=== PATIENT | female | born 1990 | race American Indian/Alaskan Native ===

== ENCOUNTER 2016-07-20 10:52 | Emergency (ER) | payer SELFPAY ==
[2016-07-20 12:15] LABS: Mean Corpuscular HGB Conc 30 % (30-34); Platelet Count 503 K/mm3 (140-440); Red Blood Count 5.12 M/mm3 (3.65-5.03); White Blood Count 8.9 K/mm3 (4.5-11.0)
[2016-07-20 12:16] LABS: Anion Gap 22 mmol/L; BUN/Creatinine Ratio 18.75; Blood Urea Nitrogen 15 mg/dL (7-17); Calcium 9.9 mg/dL (8.4-10.2); Carbon Dioxide 21 mmol/L (22-30); Chloride 97.9 mmol/L (98-107); Glucose 91 mg/dL (65-100); Potassium 3.5 mmol/L (3.6-5.0); Sodium 137 mmol/L (137-145)
[2016-07-20 12:17] LABS: Bacteria,Urine 1+ /HPF (Negative); Bilirubin,Urine NEG (Negative); Blood,Urine NEG (Negative); Ketones,Urine 80 mg/dL (Negative); Leukocyte Esterase,Urine LG (Negative); Mucus,Urine 3+ /HPF; Nitrite,Urine NEG (Negative); Urobilinogen,Urine < 2.0 mg/dL (<2.0)
[2016-07-20 12:23] LABS: Hematocrit 28.1 % (30.3-42.9); Hemoglobin 8.3 gm/dl (10.1-14.3); Mean Corpuscular Hemoglobin 16 pg (28-32); Mean Corpuscular Volume 55 fl (79-97)
[2016-07-20 13:18] LABS: Anisocytosis 1+; Blastocytes % (Manual) 0 %; Eosinophils % (Manual) 0 % (0.0-4.3)
[2016-07-20 13:19] LABS: Diff Status Complete; Elliptocytes Few; Hypochromasia 3+; Microcytosis 2+; Ovalocytes Few
[2016-07-20 20:23] VITALS: BP 132/77
--- NOTE | 2016-07-20 20:35 | Emergency Department Report ---
ED Abdominal Pain HPI - General Chief Complaint: Nausea/Vomiting/Diarrhea Stated Complaint: NAUSEA Time Seen by Provider: 07/20/16 20:11 Source: patient Mode of arrival: Ambulatory Limitations: No Limitations - History of Present Illness Initial Comments: Patient is a 26-year-old female with no past medical history presenting to the ER with 5 months of abdominal pain. Patient reports the pain is crampy, diffuse , associated with nausea at times. Currently patient denies any pain. Otherwise no fevers, chills, vomiting, chest pain, status of breath, trauma, travel, or sick contacts. MD Complaint: abdominal pain, other (Nausea) -: Gradual, month(s) Location: diffuse Radiation: none Migration to: no migration Quality: cramping Consistency: intermittent Improves With: nothing Worsens With: nothing Associated Symptoms: nausea - Related Data Previous Rx's Medication Instructions Recorded Last Taken Type Ondansetron [Zofran Odt] 4 mg PO Q8HR PRN #12 tab.rapdis 07/20/16 Unknown Rx Allergies Allergy/AdvReac Type Severity Reaction Status Date / Time No Known Allergies Allergy Unverified 07/20/16 11:33 ED Review of Systems ROS: Stated complaint: NAUSEA Other details as noted in HPI Comment: All other systems reviewed and negative ED Past Medical Hx - Past Medical History Previous Medical History?: No Additional medical history: nausea - Surgical History Past Surgical History?: Yes Additional Surgical History: Exp. lap - Social History Smoking Status: Current Every Day Smoker Substance Use Type: Alcohol, Marijuana - Medications Home Medications: Home Medications Medication Instructions Recorded Confirmed Last Taken Type Ondansetron [Zofran Odt] 4 mg PO Q8HR PRN #12 tab.rapdis 07/20/16 Unknown Rx ED Physical Exam - General Limitations: No Limitations General appearance: alert, in no apparent distress - Head Head exam: Present: atraumatic, normocephalic - Eye Eye exam: Present: normal appearance - ENT ENT exam: Present: mucous membranes moist - Neck Neck exam: Present: normal inspection - Respiratory Respiratory exam: Present: normal lung sounds bilaterally. Absent: respiratory distress - Cardiovascular Cardiovascular Exam: Present: regular rate, normal rhythm. Absent: systolic murmur, diastolic murmur, rubs, gallop - GI/Abdominal GI/Abdominal exam: Present: soft, normal bowel sounds. Absent: distended, tenderness, guarding, rebound, rigid, mass, pulsatile mass, hernia - Rectal Rectal exam: Present: deferred - Extremities Exam Extremities exam: Present: normal inspection - Back Exam Back exam: Present: normal inspection - Neurological Exam Neurological exam: Present: alert, oriented X3 - Psychiatric Psychiatric exam: Present: normal affect, normal mood - Skin Skin exam: Present: warm, dry, intact, normal color. Absent: rash ED Course Vital Signs 07/20/16 07/20/16 07/20/16 11:33 17:12 17:17 Temperature 98.9 F Pulse Rate 144 H 116 H Pulse Rate [ Left From Monitor] Respiratory 14 18 Rate Blood Pressure 128/61 Blood Pressure [Left Arm] Blood Pressure 119/70 [Right] O2 Sat by Pulse 100 100 100 Oximetry 07/20/16 07/20/16 07/20/16 17:21 17:30 17:31 Temperature 98.7 F Pulse Rate Pulse Rate [ Left From Monitor] Respiratory Rate Blood Pressure 119/70 119/70 Blood Pressure [Left Arm] Blood Pressure [Right] O2 Sat by Pulse 100 100 Oximetry 07/20/16 07/20/16 07/20/16 17:41 17:46 17:51 Temperature Pulse Rate Pulse Rate [ Left From Monitor] Respiratory 18 Rate Blood Pressure 119/70 119/70 Blood Pressure [Left Arm] Blood Pressure [Right] O2 Sat by Pulse 100 99 100 Oximetry 07/20/16 07/20/16 07/20/16 18:00 18:11 18:21 Temperature Pulse Rate Pulse Rate [ Left From Monitor] Respiratory Rate Blood Pressure 124/72 124/72 124/72 Blood Pressure [Left Arm] Blood Pressure [Right] O2 Sat by Pulse 100 100 100 Oximetry 07/20/16 07/20/16 18:31 20:21 Temperature 98.4 F Pulse Rate Pulse Rate [ 109 H Left From Monitor] Respiratory 18 Rate Blood Pressure 124/72 Blood Pressure 132/77 [Left Arm] Blood Pressure [Right] O2 Sat by Pulse 100 99 Oximetry ED Medical Decision Making - Lab Data Result diagrams: 07/20/16 11:49 07/20/16 11:49 - Medical Decision Making Results discussed with the patient at bedside, patient aware she is anemic. Instructed patient to follow-up with a mat inspector for continued abdominal pain, and to follow up with her primary care regarding her anemia, patient understood Critical care attestation.: If time is entered above; I have spent that time in minutes in the direct care of this critically ill patient, excluding procedure time. ED Disposition Clinical Impression: Abdominal pain, Nausea, Anemia Disposition: DISCHARGED TO HOME OR SELFCARE Is pt being admited?: No Condition: Stable Instructions: Abdominal Pain (ED), Anemia (ED) Prescriptions: Ondansetron [Zofran Odt] 4 mg PO Q8HR PRN #12 tab.rapdis PRN Reason: Nausea Referrals: PRIMARY CARE, [Primary Care Provider] - 3-5 Days
== END 2016-07-20 21:09 | disposition home or self-care (01) ==
LOC: ED 10:52
DX: R10.84 Generalized abdominal pain (principal); R11.0 Nausea; D64.9 Anemia, unspecified; F17.200 Nicotine dependence, unspecified, uncomplicated; F12.10 Cannabis abuse, uncomplicated
CPT/HCPCS: 36415; 80048; 81001; 81025; 82962; 85007; 85025; 99283

== ENCOUNTER 2016-09-21 16:38 | Emergency (ER) | payer SELFPAY ==
[2016-09-21 18:18] VITALS: BP 113/83
[2016-09-21 18:56] LABS: Bacteria,Urine 1+ /HPF (Negative); Bilirubin,Urine NEG (Negative); Blood,Urine NEG (Negative); Ketones,Urine NEG (Negative); Leukocyte Esterase,Urine MOD (Negative); Mucus,Urine 1+ /HPF; Nitrite,Urine NEG (Negative); Protein,Urine <15 mg/dL mg/dL (Negative); Urobilinogen,Urine < 2.0 mg/dL (<2.0)
[2016-09-21 20:19] LABS: Hematocrit 24.9 % (30.3-42.9); Hemoglobin 7.5 gm/dl (10.1-14.3); Mean Corpuscular HGB Conc 30 % (30-34); Platelet Count 541 K/mm3 (140-440); Red Blood Count 4.58 M/mm3 (3.65-5.03); White Blood Count 7.7 K/mm3 (4.5-11.0)
[2016-09-21 20:25] LABS: Mean Corpuscular Hemoglobin 16 pg (28-32); Mean Corpuscular Volume 54 fl (79-97); Red Cell Distribution Width 21.9 % (13.2-15.2)
[2016-09-21 20:39] LABS: Alanine Aminotransferase 7 units/L (7-56); Albumin 4.4 g/dL (3.9-5); Albumin/Globulin Ratio 1.4 %; Alkaline Phosphatase 44 units/L (35-129); Anion Gap 16 mmol/L; BUN/Creatinine Ratio 23.33; Blood Urea Nitrogen 14 mg/dL (7-17); Calcium 9.1 mg/dL (8.4-10.2); Carbon Dioxide 23 mmol/L (22-30); Chloride 104.7 mmol/L (98-107); Glucose 82 mg/dL (65-100); Lipase 42 units/L (13-60); Potassium 3.4 mmol/L (3.6-5.0); Sodium 140 mmol/L (137-145); Total Protein 7.5 g/dL (6.3-8.2)
[2016-09-21 21:15] LABS: Anisocytosis 1+; Basophils % (Manual) 0 % (0.0-1.8); Blastocytes % (Manual) 0 %; Elliptocytes Few; Eosinophils % (Manual) 0 % (0.0-4.3); Giant Platelets Rare; Hypochromasia 3+; Microcytosis 2+; Ovalocytes Few; Poikilocytosis 2+; Smudge Cells Few; Target Cells 1+
[2016-09-21 21:17] LABS: Diff Status Complete; Platelet Estimate Appears Increased; Rouleaux Few
== END 2016-09-22 03:16 | disposition left against medical advice (07) ==
LOC: ED 16:38
DX: M54.5 Low back pain (principal); Z53.21 Procedure and treatment not carried out due to patient leaving prior to being seen by health care provider
CPT/HCPCS: 36415; 80053; 81001; 83690; 84703; 85007; 85025

== ENCOUNTER 2016-09-23 11:02 | Inpatient (IN) | payer SELFPAY ==
[2016-09-23 13:23] LABS: Anion Gap 18 mmol/L; Blood Urea Nitrogen 14 mg/dL (7-17); Calcium 9.2 mg/dL (8.4-10.2); Carbon Dioxide 21 mmol/L (22-30); Chloride 102.7 mmol/L (98-107); Glucose 84 mg/dL (65-100); Potassium 3.7 mmol/L (3.6-5.0); Sodium 138 mmol/L (137-145)
[2016-09-23 13:38] LABS: Mean Corpuscular HGB Conc 29 % (30-34); Platelet Count 547 K/mm3 (140-440); Red Blood Count 4.48 M/mm3 (3.65-5.03)
[2016-09-23 13:50] LABS: Hematocrit 24.9 % (30.3-42.9); Hemoglobin 7.2 gm/dl (10.1-14.3); Mean Corpuscular Hemoglobin 16 pg (28-32); Mean Corpuscular Volume 56 fl (79-97); Red Cell Distribution Width 22.2 % (13.2-15.2)
[2016-09-23 14:38] LABS: Anisocytosis 1+; Blastocytes % (Manual) 0 %; Microcytosis 1+
[2016-09-23 14:39] LABS: Hypochromasia 2+; Target Cells Few
[2016-09-23 14:40] LABS: Diff Status Complete; Elliptocytes Few; Platelet Estimate Consistent w Auto
--- NOTE | 2016-09-23 16:21 | Emergency Department Report ---
Entered by BEATA CLAROS, acting as scribe for LISA SCOTT NP. ED Female HPI - General Chief complaint: Urogenital-Female Stated complaint: VAGINAL BURNING Time Seen by Provider: 09/23/16 13:39 Source: patient, RN notes reviewed, old records reviewed (labs from previous visit ) Mode of arrival: Ambulatory Limitations: No Limitations - History of Present Illness Initial comments: Pt is a 26 y.o. female who presents to [facility] for evaluation of two day hx of persistent dysuria with palpable lumps to her vagina, persistent tingling at her LLQ, and nausea. She denies urinary frequency or hematuria. Pt additionally notes experiencing a headache yesterday, at which time she took Advil. She denies black stool or blood in stool, reporting that her stool is yellow. Pt was seen here yesterday for the same complaint but left before she was seen and at [facility] for the same two days ago. She is homeless and is requesting a shower and clean clothes. PT states she thinks her vagina is irritated because the last [facility] she stayed at would not let her shower. Pt notes that she was drinking a significant amount of liquor and smoking marijuana recently. She states that she has been turned down by homeless shelters to which she has applied after being evicted from her apartment. PT states she was told that white rum would help kill infection. PT states she was drinking rum to cure her vaginal irritation MD Complaint: dysuria Onset/Timin -: days(s) Location: LLQ Severity: severe Severity scale (0 -10): 10 Quality: other (tingling) Consistency: constant Improves with: none Worsens with: none Are you Now?: No Associated Symptoms: abdominal pain, nausea/vomiting, headaches, dysuria, other (Palpable lumps to vagina). denies: vaginal discharge, vaginal bleeding, hematuria, syncope, weakness - Related Data Sexually active: Yes Previous Rx's Medication Instructions Recorded Last Taken Type Ferrous Gluconate [Fergon 325 MG 325 mg PO QDAY #30 tablet 09/24/16 Unknown Rx tab] Allergies Allergy/AdvReac Type Severity Reaction Status Date / Time No Known Allergies Allergy Verified 09/21/16 18:18 ED Review of Systems Comment: All other systems reviewed and negative Constitutional: denies: fever, malaise Respiratory: no symptoms reported Endocrine: no symptoms reported Gastrointestinal: as per HPI, abdominal pain, nausea, other (Negative for black stool or blood in stool. ) Genitourinary: dysuria. denies: frequency, hematuria, discharge Skin: as per HPI, other Neurological: headache, vertigo ED Past Medical Hx - Past Medical History Previous Medical History?: Yes Hx Psychiatric Treatment: Yes (DEPRESSION / PTSD) Additional medical history: ANEMIA ? - Surgical History Past Surgical History?: Yes Additional Surgical History: Exp. lap - Social History Smoking Status: Current Every Day Smoker Substance Use Type: Alcohol, Cocaine, Marijuana - Medications Home Medications: Home Medications Medication Instructions Recorded Confirmed Last Taken Type Ferrous Gluconate [Fergon 325 MG 325 mg PO QDAY #30 tablet 09/24/16 Unknown Rx tab] ED Physical Exam - General Limitations: No Limitations General appearance: alert, in no apparent distress - Head Head exam: Present: atraumatic, normocephalic, normal inspection - Eye Eye exam: Present: normal appearance, PERRL, EOMI. Absent: conjunctival injection - ENT ENT exam: Present: normal exam, mucous membranes moist - Neck Neck exam: Present: normal inspection, full ROM. Absent: tenderness, lymphadenopathy - Respiratory Respiratory exam: Present: normal lung sounds bilaterally. Absent: respiratory distress, chest wall tenderness - Cardiovascular Cardiovascular Exam: Present: regular rate, normal rhythm, normal heart sounds - GI/Abdominal GI/Abdominal exam: Present: soft, normal bowel sounds. Absent: tenderness, guarding, rebound - Rectal Rectal exam: Present: deferred (due to pt's refusal ) - External exam: Present: other (PT has copious amount of vaginal discharge on her external exam). Absent: erythema, swelling, lesions Speculum exam: Present: other (pt unable to tolerate. female quality associate at bedside. ) Bi-manual exam: Present: other (pt refused ) - Extremities Exam Extremities exam: Present: normal inspection, full ROM, normal capillary refill. Absent: tenderness - Back Exam Back exam: Present: normal inspection, full ROM. Absent: tenderness, CVA tenderness (R), CVA tenderness (L), muscle spasm, paraspinal tenderness, vertebral tenderness - Neurological Exam Neurological exam: Present: alert, oriented X3, normal gait - Psychiatric Psychiatric exam: Present: normal affect, normal mood - Skin Skin exam: Present: warm, dry, intact, normal color ED Course Vital Signs 09/23/16 09/23/16 09/23/16 11:06 20:39 21:12 Temperature 97.8 F 98.7 F Pulse Rate 83 89 Respiratory 20 20 20 Rate Blood Pressure 113/73 Blood Pressure 112/69 [Right] O2 Sat by Pulse 100 98 100 Oximetry 09/23/16 09/23/16 09/23/16 22:07 22:22 22:52 Temperature 98.6 F 98.6 F 98.6 F Pulse Rate 88 88 75 Respiratory 20 20 20 Rate Blood Pressure 112/68 114/52 114/59 Blood Pressure [Right] O2 Sat by Pulse 100 Oximetry 09/23/16 09/24/16 23:09 01:00 Temperature 98.6 F 98.6 F Pulse Rate 80 80 Respiratory 20 20 Rate Blood Pressure 110/61 Blood Pressure 110/75 [Right] O2 Sat by Pulse 100 99 Oximetry - Reevaluation(s) Reevaluation #1: 09/23/16 16:18 PT was unable to tolerate pelvic exam. PT aware if exam not done, that we may not be able to dx and treat the source of her pain. external vaginal discharge swabbed and sent to lab Reevaluation #2: 09/23/16 16:55 PT aware of wet prep results. 09/23/16 17:30 PT refused Flagyl and Zithromax. PT states she had those medications a year ago and they made her throw up. PT took the Phenergan that was ordered. PT aware phenergan ordered to prevent any n/v. PT still refusing treatment. Reevaluation #3: 09/23/16 19:43 pt agrees to admission for anemia. PT aware of plan of care. - Pulse Oximetry Interpretation Digit-Finger Initial Pulse Oximetry Readin Actions Taken: none ED Medical Decision Making - Lab Data Result diagrams: 09/24/16 15:25 09/23/16 12:55 Laboratory Last Values WBC 7.0 K/mm3 (4.5-11.0) 09/23/16 12:55 RBC 4.48 M/mm3 (3.65-5.03) 09/23/16 12:55 Hgb 7.2 gm/dl (10.1-14.3) L 09/23/16 12:55 Hct 24.9 % (30.3-42.9) L 09/23/16 12:55 MCV 56 fl (79-97) L 09/23/16 12:55 MCH 16 pg (28-32) L 09/23/16 12:55 MCHC 29 % (30-34) L 09/23/16 12:55 RDW 22.2 % (13.2-15.2) H 09/23/16 12:55 Plt Count 547 K/mm3 (140-440) H 09/23/16 12:55 Add Manual Diff Complete 09/23/16 12:55 Total Counted 100 09/23/16 12:55 Seg Neuts % (Manual) 56.0 % (40.0-70.0) 09/23/16 12:55 Band Neutrophils % 0 % 09/23/16 12:55 Lymphocytes % (Manual) 37.0 % (13.4-35.0) H 09/23/16 12:55 Reactive Lymphs % (Man) 0 % 09/23/16 12:55 Monocytes % (Manual) 3.0 % (0.0-7.3) 09/23/16 12:55 Eosinophils % (Manual) 3.0 % (0.0-4.3) 09/23/16 12:55 Basophils % (Manual) 1.0 % (0.0-1.8) 09/23/16 12:55 Metamyelocytes % 0 % 09/23/16 12:55 Myelocytes % 0 % 09/23/16 12:55 Promyelocytes % 0 % 09/23/16 12:55 Blast Cells % 0 % 09/23/16 12:55 Nucleated RBC % Not Reportable 09/23/16 12:55 Seg Neutrophils # Man 3.9 K/mm3 (1.8-7.7) 09/23/16 12:55 Band Neutrophils # 0.0 K/mm3 09/23/16 12:55 Lymphocytes # (Manual) 2.6 K/mm3 (1.2-5.4) 09/23/16 12:55 Abs React Lymphs (Man) 0.0 K/mm3 09/23/16 12:55 Monocytes # (Manual) 0.2 K/mm3 (0.0-0.8) 09/23/16 12:55 Eosinophils # (Manual) 0.2 K/mm3 (0.0-0.4) 09/23/16 12:55 Basophils # (Manual) 0.1 K/mm3 (0.0-0.1) 09/23/16 12:55 Metamyelocytes # 0.0 K/mm3 09/23/16 12:55 Myelocytes # 0.0 K/mm3 09/23/16 12:55 Promyelocytes # 0.0 K/mm3 09/23/16 12:55 Blast Cells # 0.0 K/mm3 09/23/16 12:55 WBC Morphology Not Reportable 09/23/16 12:55 Hypersegmented Neuts Not Reportable 09/23/16 12:55 Hyposegmented Neuts Not Reportable 09/23/16 12:55 Hypogranular Neuts Not Reportable 09/23/16 12:55 Smudge Cells Not Reportable 09/23/16 12:55 Toxic Granulation Not Reportable 09/23/16 12:55 Toxic Vacuolation Not Reportable 09/23/16 12:55 Dohle Bodies Not Reportable 09/23/16 12:55 Pelger-Huet Anomaly Not Reportable 09/23/16 12:55 Karena Rods Not Reportable 09/23/16 12:55 Platelet Estimate Consistent w auto 09/23/16 12:55 Clumped Platelets Not Reportable 09/23/16 12:55 Plt Clumps, EDTA Not Reportable 09/23/16 12:55 Large Platelets Not Reportable 09/23/16 12:55 Giant Platelets Not Reportable 09/23/16 12:55 Platelet Satelliting Not Reportable 09/23/16 12:55 Plt Morphology Comment Not Reportable 09/23/16 12:55 RBC Morphology Not Reportable 09/23/16 12:55 Dimorphic RBCs Not Reportable 09/23/16 12:55 Polychromasia Not Reportable 09/23/16 12:55 Hypochromasia 2+ 09/23/16 12:55 Poikilocytosis Not Reportable 09/23/16 12:55 Anisocytosis 1+ 09/23/16 12:55 Microcytosis 1+ 09/23/16 12:55 Macrocytosis Not Reportable 09/23/16 12:55 Spherocytes Not Reportable 09/23/16 12:55 Pappenheimer Bodies Not Reportable 09/23/16 12:55 Sickle Cells Not Reportable 09/23/16 12:55 Target Cells Few 09/23/16 12:55 Tear Drop Cells Not Reportable 09/23/16 12:55 Ovalocytes Not Reportable 09/23/16 12:55 Helmet Cells Not Reportable 09/23/16 12:55 Yous[place] Bodies Not Reportable 09/23/16 12:55 [place] Rings Not Reportable 09/23/16 12:55 [place] Cells Not Reportable 09/23/16 12:55 Bite Cells Not Reportable 09/23/16 12:55 Crenated Cell Not Reportable 09/23/16 12:55 Elliptocytes Few 09/23/16 12:55 Acanthocytes (Spur) Not Reportable 09/23/16 12:55 Rouleaux Not Reportable 09/23/16 12:55 Hemoglobin C Crystals Not Reportable 09/23/16 12:55 Schistocytes Not Reportable 09/23/16 12:55 Malaria parasites Not Reportable 09/23/16 12:55 Erick Bodies Not Reportable 09/23/16 12:55 Hem Pathologist Commnt No 09/23/16 12:55 Sodium 138 mmol/L (137-145) 09/23/16 12:55 Potassium 3.7 mmol/L (3.6-5.0) 09/23/16 12:55 Chloride 102.7 mmol/L (98-107) 09/23/16 12:55 Carbon Dioxide 21 mmol/L (22-30) L 09/23/16 12:55 Anion Gap 18 mmol/L 09/23/16 12:55 BUN 14 mg/dL (7-17) 09/23/16 12:55 Creatinine 0.7 mg/dL (0.7-1.2) 09/23/16 12:55 Estimated GFR > 60 ml/min 09/23/16 12:55 BUN/Creatinine Ratio 20.00 % 09/23/16 12:55 Glucose 84 mg/dL (65-100) 09/23/16 12:55 Calcium 9.2 mg/dL (8.4-10.2) 09/23/16 12:55 HCG, Qual Negative (Negative) 09/23/16 12:55 Urine Color Yellow (Yellow) 09/23/16 18:00 Urine Turbidity Clear (Clear) 09/23/16 18:00 Urine pH 6.0 (5.0-7.0) 09/23/16 18:00 Ur Specific [place] 1.011 (1.003-1.030) 09/23/16 18:00 Urine Protein <15 mg/dl mg/dL (Negative) 09/23/16 18:00 Urine Glucose (UA) Neg mg/dL (Negative) 09/23/16 18:00 Urine Ketones Neg mg/dL (Negative) 09/23/16 18:00 Urine Blood Neg (Negative) 09/23/16 18:00 Urine Nitrite Neg (Negative) 09/23/16 18:00 Urine Bilirubin Neg (Negative) 09/23/16 18:00 Urine Urobilinogen < 2.0 mg/dL (<2.0) 09/23/16 18:00 Ur Leukocyte Esterase Sm (Negative) 09/23/16 18:00 Urine WBC (Auto) 1.0 /HPF (0.0-6.0) 09/23/16 18:00 Urine RBC (Auto) < 1.0 /HPF (0.0-6.0) 09/23/16 18:00 U Epithel Cells (Auto) 1.0 /HPF (0-13.0) 09/23/16 18:00 Urine Mucus Few /HPF 09/23/16 18:00 - Radiology Data Radiology results: pending (Pelvic US ) - Medical Decision Making PT is a sexual active 26 year old female who complains of vaginal discomfort and dysuria. PT refused pelvic exam. Wet prep sent off of external vaginal discharge which was positive for trich. PT refused treatment while in ED. Plan to admit pt for her anemia after her pelvic US is resulted. - Differential Diagnosis vaginitis, std, cervicitis, anemia Critical Care Time: No ED Disposition Clinical Impression: Trichomonas infection, Pelvic pain Anemia Qualifiers: Anemia type: iron deficiency Iron deficiency anemia type: unspecified iron deficiency Qualified Code(s): D50.9 - Iron deficiency anemia, unspecified Disposition: OP ADMIT IP TO THIS HOSP Is pt being admited?: Yes Condition: Stable This documentation as recorded by the HYACINTH resendez KELLY,accurately reflects the service I personally performed and the decisions made by ,LISA SCOTT , ADIS.
[2016-09-23] MEDS ORDERED: XYLOCAINE 1% MPF 5 mL INFILTRATI ONE (16:54)
[2016-09-23] MEDS ORDERED: FLAGYL PO ONE (16:54)
[2016-09-23] MEDS ORDERED: ZITHROMAX PO ONE (16:54)
[2016-09-23] MEDS ORDERED: PHENERGAN PO ONE (16:54)
[2016-09-23] MEDS ORDERED: ROCEPHIN IM ONE (16:54)
[2016-09-23 18:34] LABS: Bilirubin,Urine NEG (Negative); Blood,Urine NEG (Negative); Ketones,Urine NEG (Negative); Leukocyte Esterase,Urine SM (Negative); Mucus,Urine FEW /HPF; Nitrite,Urine NEG (Negative); Protein,Urine <15 mg/dL mg/dL (Negative); RBC,Urine < 1.0 /HPF (0.0-6.0); Urobilinogen,Urine < 2.0 mg/dL (<2.0)
[2016-09-23] MEDS ORDERED: NACL 0.9% 500 ML 500 ML IV ONE ×2 (19:33→21:53)
[2016-09-23] MEDS ORDERED: NACL 0.9% 1000 ML 1,000 ML IV ONE (19:35)
--- NOTE | 2016-09-23 20:37 | Ultrasound Report ---
FINAL REPORT PROCEDURE: US PELVIC COMPLETE TECHNIQUE: Real-time transabdominal sonography in multiple planes of pelvis was performed with image documentation. This examination was performed without Doppler. Vascular abnormalities, including ovarian torsion, will not be detectable without Doppler evaluation. CPT 53616 HISTORY: Left pelvic pain, anemia COMPARISON: No prior studies are available for comparison. FINDINGS: UTERUS Size: 7 x 3 x 5 cm. Endometrial thickness: 4 mm. Orientation: Anteverted and retroflexed. Cervix: Normal. Fibroids/masses: None. Bilateral ovaries are not visualized Pelvic fluid: None. Other: None. IMPRESSION: Anteverted and retroflexed uterus. Ovaries are not well visualized. A transvaginal study may be recommended.
--- NOTE | 2016-09-23 22:07 | Emergency Department Report ---
Blank Doc - Documentation Documentation: Nurse practitioner Aurelio have signed out the patient to me and requested that I speak to the night hospitalist regarding admission for symptomatic anemia and blood transfusion. I discussed case with Dr. Stevens who said that she would evaluate the patient.
--- NOTE | 2016-09-23 23:38 | History and Physical Report ---
History of Present Illness Date of examination: 09/23/16 History of present illness: 26-year-old woman with a history of depression, PTSD, anemia comes emergency room with complaints of feeling dizzy and short of breath. She admits to heavy menstrual cycle. Patient states she had abdominal pain prior to presentation but that has been resolved Patient denies chest pain, palpitation, cough, abdominal pain, hematochezia, dysuria, frequency, focal weakness, dysarthria, fever chills, polydipsia polyuria, hot or cold intolerance, easy bruisability, or rash or bleeding from mucosal membrane, rhinorrhea, epistaxis, earache, tinnitus, blurry vision, eye discharge, anxiety, depression. Other review of systems negative PAST SURGICAL HISTORY: Exploratory laparoscopy SOCIAL HISTORY: Admits to tobacco, alcohol, drug use, refused to specify or quantify FAMILY HISTORY: Hypertension Medications and Allergies Allergies Allergy/AdvReac Type Severity Reaction Status Date / Time No Known Allergies Allergy Verified 09/21/16 18:18 Home Medications Medication Instructions Recorded Confirmed Last Taken Type Ferrous Gluconate [Fergon 325 MG 325 mg PO QDAY #30 tablet 09/24/16 Unknown Rx tab] Exam - Physical Exam Narrative exam: Gen. appearance: Patient lying in bed, no apparent distress HEENT: Normocephalic, atraumatic, pupils equally round and reactive to light, extraocular movement intact, and no sclericterus,. No JVD or thyromegaly or nodule,neck supple, no carotid bruit ,mucous membranes moist, no exudate or erythema Heart: S1, S2, regular rate and rhythm Lungs: Clear to auscultation bilaterally, breathing comfortable Abdomen: Positive bowel sounds, nontender, nondistended, no organomegaly Extremity: No edema, cyanosis, clubbing Skin: No rash, nodules, warm, dry Neuro: Oriented 3, cranial nerves II-12 intact, speech is fluent, motor and sensory intact - Constitutional Vitals: Temp Pulse Resp BP Pulse Ox 98.6 F 80 20 110/61 100 09/23/16 23:09 09/23/16 23:09 09/23/16 23:09 09/23/16 23:09 09/23/16 23:09 Results - Labs CBC & Chem 7: 09/24/16 15:25 09/23/16 12:55 Labs: Abnormal lab results 09/23/16 09/23/16 09/23/16 Range/Units 12:55 12:55 20:05 Hgb 7.2 L (10.1-14.3) gm/dl Hct 24.9 L (30.3-42.9) % MCV 56 L (79-97) fl MCH 16 L (28-32) pg MCHC 29 L (30-34) % RDW 22.2 H (13.2-15.2) % Plt Count 547 H (140-440) K/mm3 Lymphocytes % (Manual) 37.0 H (13.4-35.0) % Carbon Dioxide 21 L (22-30) mmol/L Crossmatch See Detail Assessment and Plan Symptomatic anemia Transfused 2 units of packed red blood cells pre medicate prior to transfusion Start SCD
[2016-09-24] MEDS ORDERED: MILK OF MAGNESIA PO PRN (00:42)
[2016-09-24] MEDS ORDERED: ZOFRAN IV PRN (00:42)
[2016-09-24] MEDS ORDERED: DULCOLAX PR PRN (00:42)
[2016-09-24] MEDS ORDERED: TYLENOL PO PRN (00:42)
[2016-09-24] MEDS ORDERED: NACL 0.9% 500 ML 500 ML IV ONE (00:43)
[2016-09-24] MEDS ORDERED: BENADRYL IV PRN (00:50)
--- NOTE | 2016-09-24 14:50 | Progress Note ---
Assessment and Plan Assessment and plan: ASSESSMENT/PLAN 1. Symptomatic anemia Due to heavy menstrual cycle Patient received 2 units PRBC Repeat CBC 2.Bacterial vaginosis/Trichomoniasis wet prep shows 20% clue cells and few thrichomonas Treated with IV empiric antibiotic of Flagyl empirically rx for presumed gonorrhea/chlamydia with azithromycin and rocephin 3. Homeless Patient requested long term placement 4. DVT prophylaxis Lovenox History Interval history: Patient was admitted for symptomatic anemia. Patient alert and oriented 4 overly talkative. Patient does not respond appropriately to questions. Patient had an eventful overnight verbalized feeling better. She denies chest pain or lightheadedness dizziness heart palpitations, abdominal pain. Patient is homeless and requested for long term placement. Hospitalist Physical - Constitutional Vitals: Temp Pulse Resp BP Pulse Ox 98.9 F 78 19 108/68 98 09/24/16 07:00 09/24/16 07:00 09/24/16 07:00 09/24/16 07:00 09/24/16 07:00 General appearance: Present: no acute distress - EENT Eyes: Present: PERRL, EOM intact ENT: hearing intact, clear oral mucosa - Neck Neck: Present: supple, normal ROM - Respiratory Respiratory effort: normal - Cardiovascular Heart rate: 78 Rhythm: regular Heart Sounds: Present: S1 & S2 - Extremities Extremities: no ischemia Extremity abnormal: edema Peripheral Pulses: within normal limits - Abdominal General gastrointestinal: soft, tender - Integumentary Integumentary: Present: clear, warm, dry - Psychiatric Psychiatric: other (overly talkative) - Neurologic Neurologic: CNII-XII intact - Allied Health Allied health notes reviewed: nursing Results - Labs CBC & Chem 7: 09/24/16 15:25 09/23/16 12:55 Labs: Laboratory Last Values WBC 7.0 K/mm3 (4.5-11.0) 09/23/16 12:55 RBC 4.48 M/mm3 (3.65-5.03) 09/23/16 12:55 Hgb 7.2 gm/dl (10.1-14.3) L 09/23/16 12:55 Hct 24.9 % (30.3-42.9) L 09/23/16 12:55 MCV 56 fl (79-97) L 09/23/16 12:55 MCH 16 pg (28-32) L 09/23/16 12:55 MCHC 29 % (30-34) L 09/23/16 12:55 RDW 22.2 % (13.2-15.2) H 09/23/16 12:55 Plt Count 547 K/mm3 (140-440) H 09/23/16 12:55 Add Manual Diff Complete 09/23/16 12:55 Total Counted 100 09/23/16 12:55 Seg Neuts % (Manual) 56.0 % (40.0-70.0) 09/23/16 12:55 Band Neutrophils % 0 % 09/23/16 12:55 Lymphocytes % (Manual) 37.0 % (13.4-35.0) H 09/23/16 12:55 Reactive Lymphs % (Man) 0 % 09/23/16 12:55 Monocytes % (Manual) 3.0 % (0.0-7.3) 09/23/16 12:55 Eosinophils % (Manual) 3.0 % (0.0-4.3) 09/23/16 12:55 Basophils % (Manual) 1.0 % (0.0-1.8) 09/23/16 12:55 Metamyelocytes % 0 % 09/23/16 12:55 Myelocytes % 0 % 09/23/16 12:55 Promyelocytes % 0 % 09/23/16 12:55 Blast Cells % 0 % 09/23/16 12:55 Nucleated RBC % Not Reportable 09/23/16 12:55 Seg Neutrophils # Man 3.9 K/mm3 (1.8-7.7) 09/23/16 12:55 Band Neutrophils # 0.0 K/mm3 09/23/16 12:55 Lymphocytes # (Manual) 2.6 K/mm3 (1.2-5.4) 09/23/16 12:55 Abs React Lymphs (Man) 0.0 K/mm3 09/23/16 12:55 Monocytes # (Manual) 0.2 K/mm3 (0.0-0.8) 09/23/16 12:55 Eosinophils # (Manual) 0.2 K/mm3 (0.0-0.4) 09/23/16 12:55 Basophils # (Manual) 0.1 K/mm3 (0.0-0.1) 09/23/16 12:55 Metamyelocytes # 0.0 K/mm3 09/23/16 12:55 Myelocytes # 0.0 K/mm3 09/23/16 12:55 Promyelocytes # 0.0 K/mm3 09/23/16 12:55 Blast Cells # 0.0 K/mm3 09/23/16 12:55 WBC Morphology Not Reportable 09/23/16 12:55 Hypersegmented Neuts Not Reportable 09/23/16 12:55 Hyposegmented Neuts Not Reportable 09/23/16 12:55 Hypogranular Neuts Not Reportable 09/23/16 12:55 Smudge Cells Not Reportable 09/23/16 12:55 Toxic Granulation Not Reportable 09/23/16 12:55 Toxic Vacuolation Not Reportable 09/23/16 12:55 Dohle Bodies Not Reportable 09/23/16 12:55 Pelger-Huet Anomaly Not Reportable 09/23/16 12:55 Karena Rods Not Reportable 09/23/16 12:55 Platelet Estimate Consistent w auto 09/23/16 12:55 Clumped Platelets Not Reportable 09/23/16 12:55 Plt Clumps, EDTA Not Reportable 09/23/16 12:55 Large Platelets Not Reportable 09/23/16 12:55 Giant Platelets Not Reportable 09/23/16 12:55 Platelet Satelliting Not Reportable 09/23/16 12:55 Plt Morphology Comment Not Reportable 09/23/16 12:55 RBC Morphology Not Reportable 09/23/16 12:55 Dimorphic RBCs Not Reportable 09/23/16 12:55 Polychromasia Not Reportable 09/23/16 12:55 Hypochromasia 2+ 09/23/16 12:55 Poikilocytosis Not Reportable 09/23/16 12:55 Anisocytosis 1+ 09/23/16 12:55 Microcytosis 1+ 09/23/16 12:55 Macrocytosis Not Reportable 09/23/16 12:55 Spherocytes Not Reportable 09/23/16 12:55 Pappenheimer Bodies Not Reportable 09/23/16 12:55 Sickle Cells Not Reportable 09/23/16 12:55 Target Cells Few 09/23/16 12:55 Tear Drop Cells Not Reportable 09/23/16 12:55 Ovalocytes Not Reportable 09/23/16 12:55 Helmet Cells Not Reportable 09/23/16 12:55 [place] Bodies Not Reportable 09/23/16 12:55 Gabriels Rings Not Reportable 09/23/16 12:55 Emile Cells Not Reportable 09/23/16 12:55 Bite Cells Not Reportable 09/23/16 12:55 Crenated Cell Not Reportable 09/23/16 12:55 Elliptocytes Few 09/23/16 12:55 Acanthocytes (Spur) Not Reportable 09/23/16 12:55 Rouleaux Not Reportable 09/23/16 12:55 Hemoglobin C Crystals Not Reportable 09/23/16 12:55 Schistocytes Not Reportable 09/23/16 12:55 Malaria parasites Not Reportable 09/23/16 12:55 Erick Bodies Not Reportable 09/23/16 12:55 Hem Pathologist Commnt No 09/23/16 12:55 Sodium 138 mmol/L (137-145) 09/23/16 12:55 Potassium 3.7 mmol/L (3.6-5.0) 09/23/16 12:55 Chloride 102.7 mmol/L (98-107) 09/23/16 12:55 Carbon Dioxide 21 mmol/L (22-30) L 09/23/16 12:55 Anion Gap 18 mmol/L 09/23/16 12:55 BUN 14 mg/dL (7-17) 09/23/16 12:55 Creatinine 0.7 mg/dL (0.7-1.2) 09/23/16 12:55 Estimated GFR > 60 ml/min 09/23/16 12:55 BUN/Creatinine Ratio 20.00 % 09/23/16 12:55 Glucose 84 mg/dL (65-100) 09/23/16 12:55 Calcium 9.2 mg/dL (8.4-10.2) 09/23/16 12:55 HCG, Qual Negative (Negative) 09/23/16 12:55 Urine Color Yellow (Yellow) 09/23/16 18:00 Urine Turbidity Clear (Clear) 09/23/16 18:00 Urine pH 6.0 (5.0-7.0) 09/23/16 18:00 Ur Specific [place] 1.011 (1.003-1.030) 09/23/16 18:00 Urine Protein <15 mg/dl mg/dL (Negative) 09/23/16 18:00 Urine Glucose (UA) Neg mg/dL (Negative) 09/23/16 18:00 Urine Ketones Neg mg/dL (Negative) 09/23/16 18:00 Urine Blood Neg (Negative) 09/23/16 18:00 Urine Nitrite Neg (Negative) 09/23/16 18:00 Urine Bilirubin Neg (Negative) 09/23/16 18:00 Urine Urobilinogen < 2.0 mg/dL (<2.0) 09/23/16 18:00 Ur Leukocyte Esterase Sm (Negative) 09/23/16 18:00 Urine WBC (Auto) 1.0 /HPF (0.0-6.0) 09/23/16 18:00 Urine RBC (Auto) < 1.0 /HPF (0.0-6.0) 09/23/16 18:00 U Epithel Cells (Auto) 1.0 /HPF (0-13.0) 09/23/16 18:00 Urine Mucus Few /HPF 09/23/16 18:00 Blood Type O POSITIVE 09/23/16 20:05 Antibody Screen TNR 09/23/16 20:05 CHELSEA Antibody Screen Negative 09/23/16 20:05 Crossmatch See Detail 09/23/16 20:05 - Imaging and Cardiology CT scan - pelvis: image reviewed (Anteverted and retroflexed uterus, ovaris are not well visualized and transvaginal study may be recommended.)
--- NOTE | 2016-09-24 15:21 | Discharge Summary ---
Providers - Providers Date of Admission: 09/23/16 23:36 Date of discharge: 09/24/16 Attending physician: RAMON NÚÑEZ MD Primary care physician: INCIDENT HANDLER Hospitalization Reason for admission: 35 Condition: Stable Hospital course: Patient is 26 years old -[place] female with past medical history of PTSD and anemia who presents to ED for 2 days dysuria, vaginal discharge, tingling to left lower quadrant and nausea. She admitted for symptomatic anemia due to heavy menstrual cycle; wet prep was positive for Vaginosis, Trichomoniasis, therefore she was empirically rx for presumed Gonorrhea and chlamydia due to unprotected sex with multiple partners . Patient H &H was low and received 2 units of PRBC and tolerated well. She has been treated with Empiric antibiotic therapy for bacterial vaginosis,Trichomoniasis, Gonorrhea and chlamydia. Patient completed the full course of the antibiotic. Patient advised to follow-up with OBGYN as outpatient for heavy menstrual cycle. She was placed in Homeless intermediate prior to dc Disposition: DC-30 STILL A PATIENT - Discharge Diagnoses (1) Anemia Status: Acute Qualifiers: Anemia type: iron deficiency Iron deficiency anemia type: unspecified iron deficiency Vitamin B12 deficiency anemia type: V Folate deficiency anemia type: F Bone marrow failure anemia type: B Hemolytic anemia type: H Other causes of anemia: O Chronic kidney disease stage: C Qualified Code(s): D50.9 - Iron deficiency anemia, unspecified (2) Trichomonas infection Status: Acute (3) Bacterial vaginosis Status: Acute (4) Acute blood loss anemia Status: Acute Core Measure Documentation - Palliative Care Palliative Care/ Comfort Measures: Not Applicable - VTE Discharge Requirements Deep Vein Thrombosis/Pulmonary Embolism Present on Admission: Yes Has pt received <5 days of overlap therapy or INR<2.0: No Exam - Constitutional Vitals: Temp Pulse Resp BP Pulse Ox 98.9 F 78 19 108/68 98 09/24/16 07:00 09/24/16 07:00 09/24/16 07:00 09/24/16 07:00 09/24/16 07:00 General appearance: Present: no acute distress - EENT Eyes: Present: EOM intact ENT: hearing intact, clear oral mucosa - Neck Neck: Present: supple, normal ROM - Respiratory Respiratory effort: normal Respiratory: bilateral: CTA - Cardiovascular Heart Sounds: Present: S1 & S2. Absent: rub, click - Extremities Extremities: pulses symmetrical, No edema Peripheral Pulses: within normal limits - Abdominal General gastrointestinal: Present: soft, non-tender Female genitourinary: Present: other ( palpable lumps to her vagina) - Integumentary Integumentary: Present: clear, warm, dry - Musculoskeletal Musculoskeletal: strength equal bilaterally - Psychiatric Psychiatric: appropriate mood/affect, other (talkative and strange) - Neurologic Neurologic: CNII-XII intact - Allied Health Allied health notes reviewed: nursing Plan Activity: no restrictions Weight Bearing Status: Weight Bear as Tolerated Diet: regular Follow up with: [facility] [Outside] - 3-5 Days PRIMARY CAREMD [Primary Care Provider] - 3-5 Days MARY CAMPBELL MD [Staff Physician] - 3-5 Days [facility] [Outside] - 3-5 Days [facility] [Outside] - 3-5 Days [facility] [Outside] - 3-5 Days Prescriptions: Ferrous Gluconate [Fergon 325 MG tab] 325 mg PO QDAY #30 tablet
[2016-09-24 15:58] LABS: Hematocrit 30.1 % (30.3-42.9); Hemoglobin 9.4 gm/dl (10.1-14.3); Mean Corpuscular HGB Conc 31 % (30-34); Platelet Count 476 K/mm3 (140-440); Red Blood Count 4.92 M/mm3 (3.65-5.03); White Blood Count 9.2 K/mm3 (4.5-11.0)
[2016-09-24 16:07] LABS: Mean Corpuscular Hemoglobin 19 pg (28-32); Mean Corpuscular Volume 61 fl (79-97)
[2016-09-25 01:17] VITALS: BP 125/68
[2016-09-25 16:37] LABS: Hematocrit 31.3 % (30.3-42.9); Hemoglobin 9.9 gm/dl (10.1-14.3); Mean Corpuscular HGB Conc 32 % (30-34); Platelet Count 509 K/mm3 (140-440); Red Blood Count 5.13 M/mm3 (3.65-5.03)
[2016-09-25 16:44] LABS: Anion Gap 17 mmol/L; BUN/Creatinine Ratio 14.28; Blood Urea Nitrogen 10 mg/dL (7-17); Calcium 9.1 mg/dL (8.4-10.2); Carbon Dioxide 24 mmol/L (22-30); Chloride 101.1 mmol/L (98-107); Glucose 77 mg/dL (65-100); Sodium 138 mmol/L (137-145)
[2016-09-25 17:01] LABS: Mean Corpuscular Hemoglobin 19 pg (28-32); Mean Corpuscular Volume 61 fl (79-97); Red Cell Distribution Width 31.1 % (13.2-15.2)
[2016-09-25 18:43] LABS: Basophils % (Manual) 0 % (0.0-1.8); Blastocytes % (Manual) 0 %
[2016-09-25 18:45] LABS: Anisocytosis 1+; Elliptocytes 1+; Hypochromasia 1+
[2016-09-25 18:46] LABS: Diff Status Complete; Platelet Estimate Consistent w Auto
== END 2016-09-25 16:25 | disposition home or self-care (01) | DRG 812 ==
LOC: ED 11:02 → 3A 23:36
PROVIDERS: ADMIT Internal Medicine; ATTEND Internal Medicine
PROC: 30233N1 Transfusion of Nonautologous Red Blood Cells into Peripheral Vein, Percutaneous Approach (ICD-10-PCS; principal; 2016-09-23)
DX: D62 Acute posthemorrhagic anemia (principal); A54.9 Gonococcal infection, unspecified; F32.9 Major depressive disorder, single episode, unspecified; F43.10 Post-traumatic stress disorder, unspecified; Z82.49 Family history of ischemic heart disease and other diseases of the circulatory system; Z59.0 Homelessness; Z93.4 Other artificial openings of gastrointestinal tract status; Z72.89 Other problems related to lifestyle; F14.90 Cocaine use, unspecified, uncomplicated; F12.90 Cannabis use, unspecified, uncomplicated; A59.9 Trichomoniasis, unspecified; F17.210 Nicotine dependence, cigarettes, uncomplicated; N76.0 Acute vaginitis; A74.9 Chlamydial infection, unspecified; N92.0 Excessive and frequent menstruation with regular cycle
CPT/HCPCS: 36415; 76856; 80048; 81001; 84703; 85007; 85025; 85027; 86850; 86900; 86901; 86920; 87210; 93005; 93010; J0696; J7030; J7040; P9016; Q0169

== ENCOUNTER 2016-12-31 19:04 | Emergency (ER) | payer OTHER ==
[2016-12-31 23:38] LABS: Basophils % (Auto) 0.6 % (0.0-1.8); Eosinophils % (Auto) 1.5 % (0.0-4.3); Hematocrit 31.7 % (30.3-42.9); Hemoglobin 9.7 gm/dl (10.1-14.3); Mean Corpuscular HGB Conc 31 % (30-34); Platelet Count 400 K/mm3 (140-440); Red Blood Count 4.84 M/mm3 (3.65-5.03); White Blood Count 8.9 K/mm3 (4.5-11.0)
[2017-01-01] LABS: Mean Corpuscular Hemoglobin 20 pg (28-32); Mean Corpuscular Volume 66 fl (79-97); Red Cell Distribution Width 21.5 % (13.2-15.2)
--- NOTE | 2017-01-01 05:24 | Emergency Department Report ---
ED Dizziness HPI - General Chief Complaint: Psych Stated Complaint: DIZZINESS Time Seen by Provider: 01/01/17 02:15 Source: patient Mode of arrival: Ambulatory Limitations: Altered Mental Status - History of Present Illness Initial Comments: 26-year-old female with past medical history of depression, PTSD, anemia requiring blood transfusion during admission in August presents to the hospital complaining of feeling lightheaded and dizzy and wanting a test. Patient's currently on the third day of her mental cycle. Patient is also homeless. Patient states she no longer feels dizzy and denies any complaints at this time. - Related Data Previous Rx's Medication Instructions Recorded Last Taken Type Ferrous Gluconate [Fergon 325 MG 325 mg PO QDAY #30 tablet 01/01/17 Unknown Rx tab] Allergies Allergy/AdvReac Type Severity Reaction Status Date / Time ibuprofen Allergy Unknown Verified 12/31/16 19:23 ED Review of Systems ROS: Stated complaint: DIZZINESS Other details as noted in HPI Comment: All other systems reviewed and negative Other: Constitutional: No fevers chills Eyes: No eye pain visual changes or discharge ENT: No ear pain or throat pain Neck: Denies pain Respiratory: Denies cough wheezing shortness of breath Cardiovascular: Denies chest pain, palpitations, syncope GI: Denies abdominal pain, nausea, vomiting, diarrhea : Denies dysuria Musculoskeletal: Denies back uziel Skin: Denies rash, lesions, erythema Neurologic: Denies headache, numbness, weakness Psychiatric: Denies suicidal ideation, hallucinations ED Past Medical Hx - Past Medical History Previous Medical History?: No Hx Psychiatric Treatment: Yes (DEPRESSION / PTSD) Additional medical history: ANEMIA ? - Surgical History Past Surgical History?: No Additional Surgical History: Exp. lap, ? head last year, she does not know why? - Social History Smoking Status: Current Every Day Smoker Substance Use Type: Marijuana - Medications Home Medications: Home Medications Medication Instructions Recorded Confirmed Last Taken Type Ferrous Gluconate [Fergon 325 MG 325 mg PO QDAY #30 tablet 01/01/17 Unknown Rx tab] ED Physical Exam - General Limitations: Altered Mental Status - Other Other exam information: General: No limitations, patient is alert in no acute distress Head exam: Atraumatic, normocephalic Eyes exam: Normal appearance, pupils equal reactive to light, extraocular movements intact ENT: Moist mucous membrane, normal oropharynx Neck exam: Normal inspection, full range of motion, no meningismus nontender Respiratory exam: Clear to auscultation bilateral, no wheezes, rales, crackles Cardiovascular: Normal rate and rhythm, normal heart sounds Abdomen: Soft, nondistended, and nontender, with normal bowel sounds, no rebound, or guarding Extremity: Full range of motion normal inspection no deformity Back: Normal Inspection, full range of motion, no tenderness Neurologic: Alert, oriented x3, cranial nerves intact, no motor or sensory deficit Psychiatric: normal affect, normal mood Skin: Warm, dry, intactam ED Course Vital Signs 12/31/16 01/01/17 01/01/17 19:23 01:07 01:32 Temperature 98.3 F 98.7 F Pulse Rate 102 H 98 H 96 H Respiratory 16 16 16 Rate Blood Pressure 122/73 118/69 114/74 O2 Sat by Pulse 99 100 100 Oximetry 01/01/17 01:46 Temperature 98.7 F Pulse Rate Respiratory Rate Blood Pressure O2 Sat by Pulse Oximetry ED Medical Decision Making - Lab Data Result diagrams: 12/31/16 23:18 Lab Results 12/31/16 12/31/16 Range/Units 20:25 23:18 WBC 8.9 (4.5-11.0) K/mm3 RBC 4.84 (3.65-5.03) M/mm3 Hgb 9.7 L (10.1-14.3) gm/dl Hct 31.7 (30.3-42.9) % MCV 66 L (79-97) fl MCH 20 L (28-32) pg MCHC 31 (30-34) % RDW 21.5 H (13.2-15.2) % Plt Count 400 (140-440) K/mm3 Lymph % (Auto) 33.4 (13.4-35.0) % [place] % (Auto) 7.6 H (0.0-7.3) % Eos % (Auto) 1.5 (0.0-4.3) % Baso % (Auto) 0.6 (0.0-1.8) % Lymph # 3.0 (1.2-5.4) K/mm3 [place] # 0.7 (0.0-0.8) K/mm3 Eos # 0.1 (0.0-0.4) K/mm3 Baso # 0.1 (0.0-0.1) K/mm3 Seg Neutrophils % 56.9 (40.0-70.0) % Seg Neutrophils # 5.1 (1.8-7.7) K/mm3 Urine HCG, Qual Negative (Negative) - Medical Decision Making Patient's dizziness have resolved. Labs show chronic anemia that is stable from recent discharge. Iron tablets were previously prescribed this will be encouraged and represcribed. Patient likely has iron deficiency anemia given her microcytic cells - Differential Diagnosis homelessness/malingering, anemia, vertigo, dehydration Critical Care Time: No Critical care attestation.: If time is entered above; I have spent that time in minutes in the direct care of this critically ill patient, excluding procedure time. ED Disposition Clinical Impression: Microcytic anemia Disposition: DC- TO HOME OR SELFCARE Is pt being admited?: No Does the pt Need Aspirin: No Condition: Stable Instructions: Iron Deficiency Anemia (ED) Additional Instructions: Take the medication as prescribed. Follow-up with the primary care clinic. Return if symptoms worsen Prescriptions: Ferrous Gluconate [Fergon 325 MG tab] 325 mg PO QDAY #30 tablet Referrals: [facility] [Provider Group] - 3-5 Days Time of Disposition: 05:29
--- NOTE | 2017-01-01 08:21 | Event Note ---
Date: 01/01/17 Nurse was going to discharge the patient, and the patient endorsed suicidality. I went to go evaluate the patient, and she persisted in endorsing suicidality , and was quite disorganized. She is placed on a 1013. We will obtain laboratory studies for psychiatric consultation. 335 pm. tox screeen negative medically suitable for psych consultation/ placement at this time Lab Results 12/31/16 12/31/16 Range/Units 20:25 23:18 WBC 8.9 (4.5-11.0) K/mm3 RBC 4.84 (3.65-5.03) M/mm3 Hgb 9.7 L (10.1-14.3) gm/dl Hct 31.7 (30.3-42.9) % MCV 66 L (79-97) fl MCH 20 L (28-32) pg MCHC 31 (30-34) % RDW 21.5 H (13.2-15.2) % Plt Count 400 (140-440) K/mm3 Lymph % (Auto) 33.4 (13.4-35.0) % [place] % (Auto) 7.6 H (0.0-7.3) % Eos % (Auto) 1.5 (0.0-4.3) % Baso % (Auto) 0.6 (0.0-1.8) % Lymph # 3.0 (1.2-5.4) K/mm3 [place] # 0.7 (0.0-0.8) K/mm3 Eos # 0.1 (0.0-0.4) K/mm3 Baso # 0.1 (0.0-0.1) K/mm3 Seg Neutrophils % 56.9 (40.0-70.0) % Seg Neutrophils # 5.1 (1.8-7.7) K/mm3 Urine HCG, Qual Negative (Negative) Vital Signs 12/31/16 01/01/17 01/01/17 19:23 01:07 01:32 Temperature 98.3 F 98.7 F Pulse Rate 102 H 98 H 96 H Respiratory 16 16 16 Rate Blood Pressure 122/73 118/69 114/74 O2 Sat by Pulse 99 100 100 Oximetry 01/01/17 01/01/17 01:46 05:49 Temperature 98.7 F Pulse Rate Respiratory 16 Rate Blood Pressure O2 Sat by Pulse 100 Oximetry
[2017-01-01 09:43] LABS: Anion Gap 16 mmol/L; BUN/Creatinine Ratio 21.42; Blood Urea Nitrogen 15 mg/dL (7-17); Carbon Dioxide 26 mmol/L (22-30); Chloride 103.1 mmol/L (98-107); Creatine Kinase 325 units/L (30-135); Glucose 88 mg/dL (65-100); Potassium 3.8 mmol/L (3.6-5.0); Sodium 141 mmol/L (137-145)
--- NOTE | 2017-01-02 15:54 | Consultation ---
History of Present Illness - Reason for Consult Consult date: 01/02/17 Reason for consult: Mental Health Evaluation Requesting physician: GAYATHRI MIRANDA - Chief Complaint Chief complaint: "I have bugs in my house" - History of Present Psychiatric Illness 26 y.o. AA female presenting originally for dizziness. Today patient is calm, but disorganized with a tangential thought process. She stated that she have bugs in her home. I asked her where do she reside she could not tell me and started talking about taking medications. When asked about the medication she became quiet and started looking around, possibly responding to some type of stimuli. I had to stop the assessment, patient was to disorganized to continue. No gestures of SI/HI's. Medications and Allergies Allergies Allergy/AdvReac Type Severity Reaction Status Date / Time ibuprofen Allergy Unknown Verified 12/31/16 19:23 Home Medications Medication Instructions Recorded Confirmed Last Taken Type Ferrous Gluconate [Fergon 325 MG 325 mg PO QDAY #30 tablet 01/01/17 Unknown Rx tab] Past psychiatric history - Past Medical History Past Medical History: other (anemia) Past Surgical History: Other (unable to obtain) - past Psychiatric treatment and history psychiatric treatment history: Patient stated that she took psy medications in the past. Unable to obtain a fam psy hx. - Social History Social history: other (Stated that she live with her sister) Mental Status Exam - Vital signs Last Vital Signs Temp 99.0 F 01/02/17 10:37 Pulse 82 01/02/17 10:37 Resp 18 01/02/17 10:37 BP 110/58 01/02/17 10:37 Pulse Ox 99 01/02/17 10:37 - Exam Narrative exam: ROS: (+) psychotic MSE: Appearance: calm, cooperative Behavior: regular eye contact Speech: regular rate and tone Mood: dysphoric Affect: labile Thought Process: tangential Thought Content: no gestures of SI/HI's and AVH's, disorganized Motor Activity: ambulatory Cognition: A/O x3 Insight: limited Judgment: limited Results Result Diagrams: 12/31/16 23:18 01/01/17 09:07 All other labs normal. Assessment and Plan Assessment and plan: Impression: Unspecified Psychosis. Today patient is calm, but disorganized with a tangential thought process. Patient is disorganized. DDx: Bipolar DO, R/O Schizophrenia Recommendation/Plan: Continue 1013 with placement to inpatient psy services. Start Geodon 20 mg PO BID for psychosis. Discussed possible metabolic side effects of Geodon with patient.
[2017-01-02] MEDS: GEODON PO SCH (22:17)
[2017-01-03] MEDS: GEODON PO SCH ×2 (09:31→22:00)
--- NOTE | 2017-01-04 12:03 | Progress Note ---
Subjective - Reason for Consult Consult date: 01/04/17 Reason for consult: Psychiatry Follow-up - Chief Complaint Chief complaint: "What day is it" 26 y.o. AA female presenting originally for dizziness. Today patient is still disorganized during the assessment. When she was questions, her answers were not logical. She stated that she live with her sister, than changed her mind and stated that she have a roommate that's not her sister. She wasn't able to tell me her current address. She denies SI/HI's and AVH's. Per the staff, patient have been completing her ADLs. She denies any side effects of her medication. Mental Status Exam - Vital signs Last Vital Signs Temp 98 F 01/04/17 10:00 Pulse 16 L 01/04/17 10:00 Resp 18 01/04/17 10:00 BP 102/61 01/04/17 10:00 Pulse Ox 99 01/04/17 10:00 - Exam Narrative exam: MSE: Appearance: calm, cooperative Behavior: regular eye contact Speech: regular rate and tone Mood: "okay" Affect: labile Thought Process: disorganized Thought Content: denies SI/HI's and AVH's Motor Activity: ambulatory Cognition: A/O x3 Insight: limited Judgment: limited Assessment and Plan Impression: Unspecified Psychosis. Today patient is still disorganized. DDx: Bipolar DO, R/O Schizophrenia Recommendation/Plan: Continue 1013 with placement to inpatient psy services. Modify Geodon to 40 mg PO BID for psychosis. Discussed possible metabolic side effects of Geodon with patient. Left voicemail for her father Kameron Young.
[2017-01-04] MEDS ORDERED: GEODON ONE ×2 (16:02→22:01)
[2017-01-04] MEDS: GEODON PO SCH ×2 (16:11→22:08)
[2017-01-05] MEDS ORDERED: GEODON ONE ×2 (09:44→22:07)
[2017-01-05] MEDS: GEODON PO SCH ×2 (10:36→22:01)
--- NOTE | 2017-01-05 13:18 | Progress Note ---
Subjective - Reason for Consult Consult date: 01/05/17 Reason for consult: Psychiatry Follow-up - Chief Complaint Chief complaint: "What day is it" 26 y.o. AA female presenting originally for dizziness. Today patient is still disorganized during the assessment. Patient answers are not logical at this time. When asked about her current address, again she cannot recall it, other than saying she have a roommate. She denies SI/HI's and AVH's. No indications of side effects of her medication. Mental Status Exam - Vital signs Last Vital Signs Temp 97.8 F 01/05/17 10:36 Pulse 88 01/05/17 10:36 Resp 18 01/05/17 13:06 BP 107/65 01/05/17 10:36 Pulse Ox 98 01/05/17 13:06 - Exam Narrative exam: MSE: Appearance: calm, cooperative Behavior: regular eye contact Speech: regular rate and tone Mood: "okay" Affect: labile Thought Process: disorganized Thought Content: denies SI/HI's and AVH's Motor Activity: ambulatory Cognition: A/O x2 Insight: limited Judgment: limited Assessment and Plan Impression: Unspecified Psychosis. Today patient is still disorganized during the assessment. DDx: Bipolar DO, R/O Schizophrenia Recommendation/Plan: Continue 1013 with placement to inpatient psy services. Continue Geodon to 40 mg PO BID for psychosis. Discussed possible metabolic side effects of Geodon with patient. Left voicemail for her father Kameron Young.
[2017-01-06] MEDS ORDERED: GEODON ONE ×2 (10:50→20:14)
[2017-01-06] MEDS: GEODON PO SCH ×2 (11:03→22:18)
[2017-01-07 08:21] LABS: Urine Drugs of Abuse Note Disclamer
[2017-01-07] MEDS ORDERED: GEODON ONE ×2 (10:02→21:26)
[2017-01-07] MEDS: GEODON PO SCH ×2 (10:13→22:28)
--- NOTE | 2017-01-07 10:52 | Progress Note ---
Subjective - Reason for Consult Consult date: 01/07/17 Reason for consult: Psychiatry Follow-up - Chief Complaint Chief complaint: "Hello" 26 y.o. AA female presenting originally for dizziness. Today patient is calm and cooperative during the assessment. She stated that I can contact her father Kameron Young for collateral information. Patient is more engaging today than previous assessments. She denies SI/HI's and VH's. She endorse intermittent AH's. She denies any side effects of her medications. Mental Status Exam - Vital signs Last Vital Signs Temp 97.7 F 01/07/17 09:14 Pulse 100 H 01/07/17 09:14 Resp 20 01/07/17 09:14 BP 113/63 01/07/17 09:14 Pulse Ox 100 01/07/17 09:14 - Exam Narrative exam: MSE: Appearance: calm, cooperative Behavior: regular eye contact Speech: regular rate and tone Mood: "okay" Affect: congruent to mood Thought Process: circumstantial Thought Content: denies SI/HI's and VH's, intermittent AH's Motor Activity: ambulatory Cognition: A/O x3 Insight: variable Judgment: variable Assessment and Plan Impression: Unspecified Psychosis. Today patient is calm and cooperative during the assessment. Patient experiencing intermittent AH's. DDx: Bipolar DO, R/O Schizophrenia Recommendation/Plan: Continue 1013 with placement to inpatient psy services. Continue Geodon to 40 mg PO BID for psychosis. Discussed possible metabolic side effects of Geodon with patient. Left voicemail for her father Kameron Young.
--- NOTE | 2017-01-08 09:51 | Progress Note ---
Subjective - Reason for Consult Consult date: 01/08/17 Reason for consult: Psychiatry Follow-up - Chief Complaint Chief complaint: "Hi" 26 y.o. AA female presenting originally for dizziness. Today patient is calm and cooperative during the assessment. She stated that she would like to be discharged today. She stated that she is homeless and would not mind going to a long term. She denies SI/HI's, AVH's and depression. Patient has been completing her ADL's per the staff. She denies any side effects of her medications. Mental Status Exam - Vital signs Last Vital Signs Temp 97.9 F 01/08/17 08:00 Pulse 90 01/08/17 08:00 Resp 16 01/08/17 08:00 BP 103/52 01/08/17 08:00 Pulse Ox 98 01/08/17 08:00 - Exam Narrative exam: MSE: Appearance: calm, cooperative Behavior: regular eye contact Speech: regular rate and tone Mood: "okay" Affect: congruent to mood Thought Process: logical Thought Content: denies SI/HI's and AVH's Motor Activity: ambulatory Cognition: A/O x3 Insight: fair Judgment: fair Assessment and Plan Impression: Unspecified Psychosis. Today patient is calm and cooperative during the assessment. Patient is no threat to self. DDx: Bipolar DO, R/O Schizophrenia Recommendation/Plan: Rescind 1013. Continue Geodon to 40 mg PO BID. Discussed possible metabolic side effects of Geodon with patient. Patient given outpatient psy services for [facility].
[2017-01-08] MEDS ORDERED: GEODON ONE ×2 (10:28→21:48)
[2017-01-08] MEDS: GEODON PO SCH ×2 (10:30→22:13)
--- NOTE | 2017-01-08 12:51 | Event Note ---
Date: 01/08/17 Patient has been evaluated by me patient has no suicidal or homicidal ideation. 1013 has been worsened by psychiatry also and patient home with Geodon 40 mg twice a day. Patient states that she has follow-up at [facility] and will stay with her grandma. Patient denies having any voices talking to her and expresses clear goal directed behavior.
[2017-01-09 11:33] VITALS: BP 121/67
== END 2017-01-09 09:50 | disposition home or self-care (01) ==
LOC: ED 19:04 → EEVIPCON 19:04 → ED 01-09 09:50
DX: D50.9 Iron deficiency anemia, unspecified (principal); F17.200 Nicotine dependence, unspecified, uncomplicated; F12.10 Cannabis abuse, uncomplicated; Z88.8 Allergy status to other drugs, medicaments and biological substances
CPT/HCPCS: 36415; 80048; 80307; 81025; 82550; 85025; 99284; G0480; 80320

== ENCOUNTER 2020-08-08 23:16 | Emergency (ER) | payer MEDICARE ==
--- NOTE | 2020-08-08 23:45 | Event Note ---
ED Screening Note Date of service: 08/08/20 Time: 23:44 ED Screening Note: Pt c/o vaginal burning and dysuria x 2-3 weeks and dizziness x a few days also states she is constipated had negative STI testing with PCP 2 weeks ago HR 139 This initial assessment/diagnostic orders/clinical plan/treatment(s) is/are subject to change based on patients health status, clinical progression and re- assessment by fellow clinical providers in the ED. Further treatment and workup at subsequent clinical providers discretion. Patient/guardian urged not to elope from the ED as their condition may be serious if not clinically assessed and managed. Initial orders include: ekg labs
[2020-08-09 00:27] LABS: Basophils # (Auto) 0.1 K/mm3 (0.0-0.1); Basophils % (Auto) 0.5 % (0.0-1.8); Eosinophils % (Auto) 0.1 % (0.0-4.3); Hematocrit 33.2 % (30.3-42.9); Hemoglobin 10.2 gm/dl (10.1-14.3); Lymphocytes # (Auto) 4.3 K/mm3 (1.2-5.4); Lymphocytes % (Auto) 31.3 % (13.4-35.0); Mean Corpuscular HGB Conc 31 % (30-34); Monocytes # (Auto) 1.1 K/mm3 (0.0-0.8); Monocytes % (Auto) 8.1 % (0.0-7.3); Platelet Count 501 K/mm3 (140-440); Red Blood Count 5.39 M/mm3 (3.65-5.03)
[2020-08-09 00:28] LABS: Bacteria,Urine 1+ /HPF (Negative); Bilirubin,Urine SM (Negative); Blood,Urine NEG (Negative); Color,Urine Amber (Yellow); Hyaline Casts,Urine 6 /LPF; Mucus,Urine 3+ /HPF
[2020-08-09 00:34] LABS: Mean Corpuscular Volume 62 fl (79-97)
[2020-08-09 00:39] LABS: Ictotest,Urine Negative (Negative)
[2020-08-09 00:45] LABS: Albumin 4.6 g/dL (3.9-5); Calcium 9.5 mg/dL (8.4-10.2)
--- NOTE | 2020-08-09 01:44 | XRay Report ---
ABDOMEN 2 VIEW(S) INDICATION / CLINICAL INFORMATION: constipation. COMPARISON: None available. FINDINGS: TUBES / LINES: None. BOWEL GAS PATTERN: No significant abnormality. ADDITIONAL FINDINGS: No significant additional findings. IMPRESSION: No acute abnormality. Signer Name: Roc Ram MD Signed: 08/09/2020 1:39 AM Workstation Name: [id number]
[2020-08-09] MEDS ORDERED: levoFLOXacin 500 MG TAB PO ONE (02:52)
--- NOTE | 2020-08-09 02:54 | Emergency Department Report ---
HPI - General Chief Complaint: Dizziness Time Seen by Provider: 08/08/20 23:43 - HPI HPI: Room 23 The patient is a 30-year-old female present with a chief complaint of dysuria. Patient states for past 1 month she has had burning when she urinates. Patient denies vaginal discharge. The patient states she is not sexually active and has not had sexual intercourse since April 2020. Patient admits to occasional nausea vomiting. Patient states her LMP occurred 2 weeks ago and was within normal limits. ED Past Medical Hx - Past Medical History Hx Psychiatric Treatment: Yes (DEPRESSION / PTSD) Additional medical history: ANEMIA ? - Surgical History Additional Surgical History: Exp. lap, ? head last year, she does not know why? - Family History Family history: no significant - Social History Smoking Status: Current Some Day Smoker Substance Use Type: None (Denies illicit drug use), Alcohol (Occasional) - Medications Home Medications: Home Medications Medication Instructions Recorded Confirmed Last Taken Type Ferrous Gluconate [Fergon 325 MG 325 mg PO QDAY #30 tablet 01/01/17 Unknown Rx tab] Ziprasidone [Geodon] 40 mg PO BID #30 capsule 01/08/17 Unknown Rx Phenazopyridine [Pyridium] 200 mg PO TID #6 tab 08/09/20 Unknown Rx Promethazine [Phenergan] 25 mg PO Q6HR PRN #20 tab 08/09/20 Unknown Rx levoFLOXacin [Levaquin TAB] 500 mg PO QDAY #10 tablet 08/09/20 Unknown Rx ED Review of Systems ROS: Stated complaint: DIZZINESS;VAGINAL BURNING Other details as noted in HPI Constitutional: no symptoms reported Eyes: denies: eye pain ENT: denies: throat pain Respiratory: no symptoms reported Cardiovascular: denies: chest pain Endocrine: no symptoms reported Gastrointestinal: nausea, vomiting. denies: abdominal pain Genitourinary: dysuria. denies: discharge, abnormal menses Musculoskeletal: denies: back pain Neurological: denies: headache Physical Exam - Physical Exam Vital Signs: Vital Signs 08/08/20 23:35 Temperature 99.3 F Pulse Rate 139 H Respiratory 18 Rate Blood Pressure 115/70 O2 Sat by Pulse 99 Oximetry Physical Exam: GENERAL: The patient is well-developed well-nourished female lying on stretcher not appearing to be in acute distress. [] HEENT: Normocephalic. Atraumatic. Extraocular motions are intact. Patient has moist mucous membranes. NECK: Supple. Trachea midline CHEST/LUNGS: Clear to auscultation. There is no respiratory distress noted. HEART/CARDIOVASCULAR: Regular. There is no tachycardia. There is no gallop rub or murmur. ABDOMEN: Abdomen is soft, nontender. Patient has normal bowel sounds. There is no abdominal distention. SKIN: There is no rash. There is no edema. There is no diaphoresis. NEURO: The patient is awake, alert, and oriented. The patient is cooperative. The patient has no focal neurologic deficits. The patient has normal speech MUSCULOSKELETAL: There is trace right CVA tenderness. There is no evidence of acute injury. ED Course Vital Signs 08/08/20 23:35 Temperature 99.3 F Pulse Rate 139 H Respiratory 18 Rate Blood Pressure 115/70 O2 Sat by Pulse 99 Oximetry ED Medical Decision Making - Lab Data Result diagrams: 08/09/20 00:12 08/09/20 00:12 Laboratory Tests 08/08/20 08/09/20 08/09/20 Unknown 00:12 00:12 WBC 13.7 H RBC 5.39 H Hgb 10.2 Hct 33.2 MCV 62 L MCH 19 L MCHC 31 RDW 19.0 H Plt Count 501 H Lymph % (Auto) 31.3 [place] % (Auto) 8.1 H Eos % (Auto) 0.1 Baso % (Auto) 0.5 Lymph # (Auto) 4.3 [place] # (Auto) 1.1 H Eos # (Auto) 0.0 Baso # (Auto) 0.1 Seg Neutrophils % 60.0 Seg Neutrophils # 8.2 H Sodium 137 Potassium 3.6 Chloride 98.1 Carbon Dioxide 22 Anion Gap 21 BUN 17 Creatinine 1.5 H Estimated GFR 50 BUN/Creatinine Ratio 11 Glucose 98 Calcium 9.5 Total Bilirubin 0.60 AST 20 ALT 12 Alkaline Phosphatase 80 Total Protein 8.1 Albumin 4.6 Albumin/Globulin Ratio 1.3 HCG, Quant Urine Color Crystal Urine Turbidity Cloudy Urine pH 5.0 Ur Specific [place] 1.032 H Urine Protein 100 mg/dl Urine Glucose (UA) Neg Urine Ketones 20 Urine Blood Neg Urine Nitrite Neg Urine Bilirubin Sm Urine Ictotest Negative Urine Urobilinogen 2.0 Ur Leukocyte Esterase Neg Urine WBC (Auto) 25.0 H Urine RBC (Auto) 3.0 U Epithel Cells (Auto) 5.0 Urine Bacteria (Auto) 1+ Hyaline Casts 6 Urine Mucus 3+ 08/09/20 00:12 WBC RBC Hgb Hct MCV MCH MCHC RDW Plt Count Lymph % (Auto) [place] % (Auto) Eos % (Auto) Baso % (Auto) Lymph # (Auto) [place] # (Auto) Eos # (Auto) Baso # (Auto) Seg Neutrophils % Seg Neutrophils # Sodium Potassium Chloride Carbon Dioxide Anion Gap BUN Creatinine Estimated GFR BUN/Creatinine Ratio Glucose Calcium Total Bilirubin AST ALT Alkaline Phosphatase Total Protein Albumin Albumin/Globulin Ratio HCG, Quant < 2 Urine Color Urine Turbidity Urine pH Ur Specific [place] Urine Protein Urine Glucose (UA) Urine Ketones Urine Blood Urine Nitrite Urine Bilirubin Urine Ictotest Urine Urobilinogen Ur Leukocyte Esterase Urine WBC (Auto) Urine RBC (Auto) U Epithel Cells (Auto) Urine Bacteria (Auto) Hyaline Casts Urine Mucus - Radiology Data Radiology results: report reviewed (Abdominal x-ray), image reviewed (Abdominal x-ray) interpreted by me: Abdominal [id number] bowel gas pattern, no free air. [facility] [address] [place] [address] XRay Report Signed Patient: MONTSE KILPATRICK MR#: [id number] : 1990 Acct:[id number] Age/Sex: 30 / F ADM Date: 08/08/20 Loc: ED Attending Dr: Ordering Physician: JERE GAMBLE Date of Service: 08/08/20 Procedure(s): XR abdomen 2V Accession Number(s): [id number] cc: JERE GAMBLE Fluoro Time In Minutes: ABDOMEN 2 VIEW(S) INDICATION / CLINICAL INFORMATION: constipation. COMPARISON: None available. FINDINGS: TUBES / LINES: None. BOWEL GAS PATTERN: No significant abnormality. ADDITIONAL FINDINGS: No significant additional findings. IMPRESSION: No acute abnormality. Signer Name: Roc Ram MD Signed: 08/09/2020 1:39 AM Workstation Name: [id number] Transcribed By: ES Dictated By: Roc Ram MD Electronically Authenticated By: Roc Ram MD Signed Date/Time: 08/09/20138 DD/ 7 TD/TT: Print Cancel - Differential Diagnosis UTI, pyelonephritis, symptomatic anemia, Critical care attestation.: If time is entered above; I have spent that time in minutes in the direct care of this critically ill patient, excluding procedure time. ED Disposition Clinical Impression: Pyelonephritis, Dysuria Disposition: TO HOME OR SELFCARE Is pt being admited?: No Does the pt Need Aspirin: No Condition: Stable Instructions: Pyelonephritis, Adult, [id number] Additional Instructions: Return to the emergency department should you develop worsening symptoms, inability to tolerate food or liquids, high fever or any other concerns Prescriptions: levoFLOXacin [Levaquin TAB] 500 mg PO QDAY #10 tablet Promethazine [Phenergan] 25 mg PO Q6HR PRN #20 tab PRN Reason: Nausea Phenazopyridine [Pyridium] 200 mg PO TID #6 tab Referrals: PRIMARY CARE, [Primary Care Provider] - 3-5 Days [facility] [Provider Group] - 3-5 Days Time of Disposition: 05:15
[2020-08-09] MEDS ORDERED: SODIUM CHLORIDE 0.9% 1000 ML 1,000 ML IV ONE ×2 (02:58→04:27)
[2020-08-09 05:14] VITALS: BP 121/76
--- NOTE | 2020-08-09 11:16 | Electrocardiograph Report ---
[facility] Test Date: 2020-08-08 Test Time: 23:46:39 Pat Name: MONTSE KILPATRICK Department: Room: Gender: F [employer]ker: SHERLYN : 1990 Requested By: JERE GAMBLE Order Number: [id number] Reading MD: Efra Herrera Measurements Intervals [place] Rate: 117 P: 67 RI: 134 QRS: 55 QRSD: 81 T: 23 QT: 309 QTc: 432 Interpretive Statements Sinus tachycardia No previous ECG available for comparison Electronically Signed On 08-09-2020 11:15:36 EDT by Efra Herrera
== END 2020-08-09 06:10 | disposition home or self-care (01) ==
LOC: ED 23:16
DX: N12 Tubulo-interstitial nephritis, not specified as acute or chronic (principal); R30.0 Dysuria; R11.2 Nausea with vomiting, unspecified; F32.9 Major depressive disorder, single episode, unspecified; F17.200 Nicotine dependence, unspecified, uncomplicated; Z72.89 Other problems related to lifestyle; Z88.6 Allergy status to analgesic agent; Z79.899 Other long term (current) drug therapy
CPT/HCPCS: 36415; 74019; 80053; 81001; 84702; 85025; 87086; 93005; 96360; 96361; 99284; J7030